=== PATIENT | male | born 1955 | race Caucasian/White ===

== ENCOUNTER 2019-06-27 16:02 | Observation (INO) ==
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
[2019-06-27 16:43] LABS: BASO# 0.02 X1000 (0.0-0.2); BASO% 0.2 % (0.0-0.8); EOS# 0.38 X1000 (0.0-0.7); EOS% 3.9 % (0.0-10.0); IMM GRAN# 0.05 X1000 (0.0-0.04); IMM GRAN% 0.5 % (0.0-0.5); LYMPH# 1.03 X1000 (1.2-3.4); LYMPH% 10.5 % (20.5-51.1); MCH 33.1 PG (27-31); MCHC 33.3 g/dL (33-37); MCV 99.3 FL (81-99); MONO# 0.58 X1000 (0.11-0.59); MONO% 5.9 % (1.7-9.3); MPV 9.5 FL (7.4-10.4); NEUT# 7.74 X1000 (1.4-6.5); PLT 200 X1000 (130-400); RBC 4.23 XMIL (4.7-6.1); RDW 14.1 % (11.5-14.5)
[2019-06-27] MEDS ORDERED: MORPHINE IV ONE (16:45)
[2019-06-27] MEDS ORDERED: NS 1,000 ML IV ONE (16:45)
[2019-06-27] MEDS ORDERED: ZOFRAN IV ONE (16:45)
[2019-06-27] MEDS ORDERED: NORFLEX IV ONE (16:45)
[2019-06-27 16:50] LABS: INR 1.06
[2019-06-27 16:51] LABS: PTT 22.3 Seconds (22.3-41.8)
[2019-06-27 16:53] LABS: ALLEN TEST YES; BE 0.1 mmoll (-3.0-3.0); BLOOD TYPE ARTERIAL; HCO3-(ACT) 24.9 mmoll (20.0-26.0); METHB 1.2 % (0.0-1.5); O2(CT) 18.6 mL/dL (15.0-23.0); O2HB 93.8 % (95.0-99.0); PCO2(98.6) 35 mmHg (35-45); PO2(98.6) 74 mmHg (60-100); SAMPLE BLOOD; THB 14.1 g/dL (11.5-17.4); pH(98.6) 7.44 (7.35-7.45)
[2019-06-27 16:54] LABS: MODALITY ROOM AIR
[2019-06-27 17:05] LABS: ALB/GLOB RATIO 1.8; ALBUMIN 4.2 g/dL (3.5-5.0); CALCIUM 9.5 mg/dL (8.8-10.2); CREATININE 1.3 mg/dL (0.7-1.2); MAGNESIUM 1.8 mg/dL (1.5-2.7); TOTAL BILIRUBIN 0.38 mg/dL (0.20-1.00); TOTAL PROTEIN 6.6 g/dL (6.3-8.3)
[2019-06-27 17:34] LABS: CK INDEX 4.1 (0.0-2.5); CK-MB 28.85 ng/mL (0.0-5.0)
[2019-06-27] MEDS ORDERED: DEPAKOTE PO ONE (18:23)
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
[2019-06-27] MEDS ORDERED: ATIVAN ONE ×2 (19:40→19:44)
[2019-06-27] MEDS ORDERED: ATIVAN IV ONE ×2 (19:41)
[2019-06-27 21:30] LABS: URINE SOURCE CLEAN CATCH
[2019-06-27 21:34] LABS: BILIRUBIN URINE NEGATIVE (NEGATIVE); BLOOD URINE MODERATE (NEGATIVE); COLOR YELLOW; GLUCOSE URINE NEGATIVE (NEGATIVE); KETONE URINE TRACE mg/dL (NEGATIVE); LEUKOCYTES URINE NEGATIVE (NEGATIVE); NITRITE URINE NEGATIVE (NEGATIVE); PROTEIN URINE 30 mg/dL (NEGATIVE); TURBIDITY URINE CLEAR (CLEAR); UROBILINOGEN URINE NORMAL (NORMAL)
[2019-06-27 21:36] LABS: UR EPITHELIAL CELLS <10 /HPF (<10); URINE BACTERIA NEGATIVE /HPF; URINE RBC <10 /HPF (<10); URINE WBC <10 /HPF (<10)
[2019-06-27 21:42] LABS: SP GRAVITY URINE 1.015
[2019-06-27 22:27] LABS: UR AMPHETAMINES QUAL NONE DETECTED (NONE DETECT); UR BARBITUATES QUAL NONE DETECTED (NONE DETECT); UR BENZODIAZEPIN QUAL NONE DETECTED (NONE DETECT); UR CANNABINOIDS QUAL NONE DETECTED (NONE DETECT); UR COCAINE QUAL NONE DETECTED (NONE DETECT); UR METHADONE QUAL NONE DETECTED (NONE DETECT); UR OPIATES QUAL PRESUMPTIVE POSITIVE (NONE DETECT); UR OXYCODONE QUAL NONE DETECTED (NONE DETECT); UR PCP QUAL NONE DETECTED (NONE DETECT)
[2019-06-28] MEDS ORDERED: ZOFRAN IV PRN (00:44)
[2019-06-28] MEDS ORDERED: ATIVAN IV PRN (00:44)
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
[2019-06-28 06:07] LABS: BASO# 0.02 X1000 (0.0-0.2); BASO% 0.3 % (0.0-0.8); EOS# 0.18 X1000 (0.0-0.7); EOS% 2.3 % (0.0-10.0); HEMATOCRIT 36.1 % (42.0-52.0); HEMOGLOBIN 11.9 g/dL (14.0-18.0); LYMPH# 1.46 X1000 (1.2-3.4); LYMPH% 18.7 % (20.5-51.1); MCH 33.4 PG (27-31); MCV 101.4 FL (81-99); MONO# 0.77 X1000 (0.11-0.59); MONO% 9.8 % (1.7-9.3); MPV 10.3 FL (7.4-10.4); NEUT# 5.39 X1000 (1.4-6.5); NEUT% 68.9 % (42.2-75.2); PLT 172 X1000 (130-400); RBC 3.56 XMIL (4.7-6.1); RDW 14.6 % (11.5-14.5); WBC 7.82 X1000 (4.8-10.8)
[2019-06-28 06:28] LABS: CALCIUM 8.5 mg/dL (8.8-10.2); CREATININE 1.3 mg/dL (0.7-1.2); POTASSIUM 3.5 mmol/L (3.5-5.1)
[2019-06-28] MEDS: TYLENOL PO PRN ×2 (10:01→20:44)
[2019-06-28] MEDS: DEPAKOTE PO ONE (17:45)
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
[2019-06-29 08:23] LABS: AGAP 11; ALB/GLOB RATIO 1.3; ALBUMIN 3.5 g/dL (3.5-5.0); ALKALINE PHOSPHATASE 66 U/L (32-122); BUN 10 mg/dL (8-22); CALCIUM 8.6 mg/dL (8.8-10.2); CHLORIDE 102 mmol/L (98-107); COSMO 277; CREATININE 1.1 mg/dL (0.7-1.2); ESTIMATED GFR > 60; GLUCOSE 104 mg/dL (70-104); GOT 41 U/L (10-34); GPT 23 U/L (10-44); MAGNESIUM 1.9 mg/dL (1.5-2.7); POTASSIUM 3.7 mmol/L (3.5-5.1); SODIUM 139 mmol/L (136-145); TCO2 26 mmol/L (25-35); TOTAL BILIRUBIN 0.64 mg/dL (0.20-1.00); TOTAL PROTEIN 6.1 g/dL (6.3-8.3)
[2019-06-29 08:40] LABS: FREE T4 0.83 ng/dL (0.93-1.70); TSH 1.68 uIUmL (0.27-4.20)
[2019-06-29] MEDS ORDERED: NORCO-10 PO PRN (09:48)
[2019-06-29] MEDS ORDERED: LEXAPRO PO SCH (10:00)
[2019-06-29] MEDS ORDERED: LIPITOR PO SCH (10:00)
[2019-06-29] MEDS ORDERED: PLAVIX PO SCH (10:00)
[2019-06-29] MEDS: DEPAKOTE PO ONE (10:43)
[2019-06-29] MEDS ORDERED: TOPROL XL PO ONE (11:00)
[2019-06-29] MEDS ORDERED: DEPAKOTE PO SCH (11:30)
[2019-06-29 11:50] VITALS: BP 177/83
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
[2019-06-30] MEDS ORDERED: TOPROL XL PO SCH (09:00)
== END 2019-06-29 14:01 | disposition home or self-care (01) | DRG 101 ==
LOC: SUPCPDRO → ED 16:02 → EDIPHOLD 16:03 → SUATTDRO 16:03 → INTOOBSV 16:03 → EDIPHOLD 06-28 10:00 → 3N 06-28 11:01
PROVIDERS: ATTEND Emergency Medicine